=== PATIENT | male | born 1940 | race Caucasian/White ===

== ENCOUNTER 2018-05-16 16:27 | Emergency (ER) | payer OTHER ==
--- NOTE | 2018-05-16 17:10 | EDPHY ---
H & P Time Seen by Provider: 05/16/18 17:10 HPI/ROS: Chief complaint. Leg swelling HPI. 77-year-old male with 3 day history right lower extremity swelling. Stiff and sore behind the right knee in the morning. He limps a little bit in the morning secondary to discomfort. He has had no injury or unusual activity. He has no symptoms above the knee in the thigh. No chest pain or shortness of breath. Saw PCP today and started on Xarelto. Referred to ED for ultrasound ROS 10 systems were reviewed and negative with the exception of the elements mentioned in the history of present illness Past Medical/Surgical History: COPD, hypertension, GERD, appendectomy, eye surgery Social History: nonsmoker no alcohol Smoking Status: Former smoker Physical Exam: General Appearance: Alert well-developed male mild distress vital signs stable Eyes: Pupils equal and round no pallor or injection. ENT, Mouth: Mucous membranes are moist. Respiratory: There are no retractions, lungs are clear to auscultation. Cardiovascular: Regular rate and rhythm. Gastrointestinal: Abdomen is soft and nontender, no masses, bowel sounds normal. Neurological: Awake and alert, sensory and motor exams grossly normal. Skin: Warm and dry, no rashes. Musculoskeletal: Neck is supple nontender. Extremities very mild swelling to the right lower extremity below the knee. Both lower extremities have 1+ pitting edema. Dorsalis pedis pulses symmetrical. Mild discomfort behind the right knee. No symptoms above the knee and the thigh. No particular tenderness to the calf. Achilles tendon is intact. Psychiatric: Patient is oriented X 3, there is no agitation. Constitutional: Initial Vital Signs Temperature (C) 36.7 C 05/16/18 16:36 Heart Rate 72 05/16/18 16:36 Respiratory Rate 20 05/16/18 16:36 Blood Pressure 167/85 H 05/16/18 16:36 O2 Sat (%) 90 L 05/16/18 16:36 O2 Delivery Mode Room Air Allergies/Adverse Reactions: Sulfa (Sulfonamide Antibiotics) [Sulfa(Sulfonamide Antibiotics)] Allergy ( Unknown, Verified 05/16/18 16:34) Home Medications: Medication Instructions Recorded Atenolol 02/09/12 Norvasc 02/09/12 Prilosec 10/13/12 Albuterol Hfa Anes Only [Proair 12/21/16 Hfa Icu (*)] Spiriva Handihaler 02/29/16 Aspirin 81mg (*) 05/16/18 Symbicort 80-4.5 Mcg Inhaler 05/16/18 Medical Decision Making - Diagnostics Imaging Results: Imaging Impressions Extremity Venous Study 05/16/18 16:40 Impression: There is no sonographic evidence of deep or superficial vein thrombosis in the right lower extremity. Findings were discussed with ZAHEER MARTINEZ MD at 17:11, on 05/16/2018. Ultrasound is negative for DVT. Reviewed by me and discussed with Radiology ED Course/Re-evaluation: Re-evaluation at 5:20 p.m.. Patient and I discussed imaging study results, treatment plan including discontinuation of blood thinner. He expresses understanding and agreement Differential Diagnosis: This may be sprain strain. No evidence for DVT. Evidence of mild bilateral edema Departure - Departure Disposition: Home, Routine, Self-Care Clinical Impression: Strain of right knee and leg Qualifiers: Encounter type: initial encounter Qualified Code(s): S86.911A - Strain of unspecified muscle(s) and tendon(s) at lower leg level, right leg, initial encounter Condition: Good Instructions: Muscle Strain (ED) Additional Instructions: Easy activity Try to keep legs elevated when at rest Tylenol 1000 mg every 6 hr as needed for discomfort Discontinue blood thinner Re-evaluation by Dr. Cade on Saturday Referrals: Palmer Cade MD [Primary Care Provider] - 2-3 days without fail
[2018-05-16 18:56] VITALS: BP 145/84
== END 2018-05-16 17:35 | disposition home or self-care (01) ==
LOC: CED 16:27
DX: S86.911A Strain of unspecified muscle(s) and tendon(s) at lower leg level, right leg, initial encounter (principal); R60.9 Edema, unspecified; J44.9 Chronic obstructive pulmonary disease, unspecified; I10 Essential (primary) hypertension; X58.XXXA Exposure to other specified factors, initial encounter; Z90.89 Acquired absence of other organs; Z87.891 Personal history of nicotine dependence; Z88.2 Allergy status to sulfonamides; Y92.9 Unspecified place or not applicable; Y99.9 Unspecified external cause status; Y93.9 Activity, unspecified
CPT/HCPCS: 93971-PO; 99284-ER

== ENCOUNTER → 2018-08-17 | Outpatient (CLI) | payer OTHER | LOC: FCPNEURO 21:44 ==